=== PATIENT | male | born 1955 | race Caucasian/White ===

== ENCOUNTER 2022-10-10 13:14 | Emergency (ER) | payer MEDICARE, OTHER ==
[~2022-10-10] VITALS: Wt 68.5 kg
[~2022-10-10 13:14] MED LIST: KEFLEX500 MG PO
[2022-10-10 14:05] LABS: ALKALINE PHOSPHATASE 59 U/L (46-116); BUN 8 mg/dl (9-23); CHLORIDE 107 mmol/L (98-107); POTASSIUM 3.7 mmol/L (3.4-5.1); SGPT/ALT 18 U/L (10-49); TOTAL PROTEIN 7.4 gm/dL (6.0-8.0)
== END 2022-10-10 14:00 | disposition short-term general hospital (02) ==
LOC: ED 13:14
PROVIDERS: Emergency Medicine
DX: I21.29 ST elevation (STEMI) myocardial infarction involving other sites (principal)

== ENCOUNTER 2023-11-24 16:03 | Emergency (ER) | payer MEDICARE, OTHER ==
[~2023-11-24] VITALS: Ht 167.6 cm; Wt 61.2 kg
[2023-11-24] MEDS ORDERED: SODIUM CHLORIDE 0.9% 1,000 ML IV ONE ×2 (16:50→16:56)
[2023-11-24 17:04] LABS: BASO % 0.5 % (0.0-1.0); EOS # 0.1 10*3/uL (0.0-0.4); HEMATOCRIT 33.8 % (42.0-52.0); LYMPH # 2.4 10*3/uL (1.3-4.4); LYMPH % 29.2 % (27.0-41.0); MEAN CELL VOLUME 98.8 fl (80.0-94.0); MEAN CORPUSCULAR HGB 32.5 pg (27.0-31.0); MEAN CORPUSCULAR HGB CONC 32.8 g/dl (33.0-37.0); MEAN PLATELET VOLUME 9.6 fl (9.6-12.3); MONO # 0.6 10*3/uL (0.1-1.0); MONO % 7.8 % (3.0-9.0); NEUT # 5.1 10*3/uL (2.3-7.9); NEUT % 61.3 % (47.0-73.0); PLATELET COUNT AUTOMATED 173 10*3/uL (130-400); RED BLOOD COUNT 3.42 10*6/uL (4.50-5.90); RED CELL DISTRI WIDTH 12.7 % (0-14.5); WHITE BLOOD COUNT 8.2 10*3/uL (4.8-10.8)
[2023-11-24 17:16] LABS: ACT PARTIAL THROMBO TIME 27.6 SECONDS (20.0-32.1)
[2023-11-24 17:29] LABS: ALKALINE PHOSPHATASE 45 U/L (46-116); BUN 21 mg/dl (9-23); CHLORIDE 107 mmol/L (98-107); LIPASE 32 U/L (12-53); POTASSIUM 3.3 mmol/L (3.4-5.1); SGPT/ALT 26 U/L (5-49); TOTAL PROTEIN 6.2 gm/dL (6.0-8.0)
[2023-11-24] MEDS ORDERED: POTASSIUM CHLORIDE 20 MEQ TAB PO ONE (20:35)
[2023-11-24] MEDS ORDERED: Ondansetron Hydrochloride 4 MG/2 ML VIAL IV ONE (21:10)
[2023-11-24] MEDS ORDERED: ONDANSETRON4 MG SL (21:10)
== END 2023-11-24 21:27 | disposition home or self-care (01) ==
LOC: ED 16:03
PROVIDERS: Internal Medicine
DX: B34.9 Viral infection, unspecified (principal); E87.6 Hypokalemia; D53.9 Nutritional anemia, unspecified; Z87.891 Personal history of nicotine dependence